=== PATIENT | female | born 1970 | race Caucasian/White ===

== ENCOUNTER 2016-07-15 12:04 | Emergency (ER) | payer SELFPAY ==
[~2016-07-15] VITALS: Ht 166.4 cm; Wt 75.0 kg
[2016-07-15 12:07] VITALS: BP 148/86; PULSE 72; RESP 16; TEMP 98.3; O2SAT 100
[2016-07-15] MEDS ORDERED: NAPR500T PO (12:27)
[2016-07-15] MEDS ORDERED: PENI250T59 PO (12:27)
--- NOTE | 2016-07-15 12:33 | PD ---
HPI Chief Complaint: Facial Pain or Swelling Time Seen by Provider: 12:27 Travel History International Travel<30 days: No Contact w/Intl Traveler<30days: No Traveled to known affect area: No History of Present Illness HPI 46-year-old female presents to the emergency department for evaluation of left upper dental pain, left-sided facial pain and left ear pain. The patient states that the symptoms have presented over the last 2 days and been worsening. She denies any fever, chills, nausea, vomiting, difficulty swallowing or eating. Pain is aggravated with palpation and eating. Denies any alleviating factors. She has not taken anything for her symptoms so far. Admits that she has a history of poor dentition. No other complaints. [facility] Past Medical History Medical History: Denies Significant Hx Tetanus Vaccination: > 5 Years Influenza Vaccination: No ?: Not LMP: 07/11/16 Past Surgical History Section: Yes (X's 2) Social History Alcohol Use: Yes ("2 beers after work") Tobacco Use: Yes (1/2 PPD) Substance Use: No Allergies-Medications (Allergen,Severity, Reaction): Coded Allergies: No Known Allergies (Unverified , 07/15/16) Reported Meds & Prescriptions Reported Meds & Active Scripts Active No Active Prescriptions or Reported Medications Review of Systems Except as stated in HPI: all other systems reviewed are Neg Physical Exam Narrative GENERAL: Well-nourished and well-developed pleasant patient in no acute distress who is nontoxic appearing. SKIN: Warm and dry. HEAD: Normocephalic and atraumatic. No facial swelling. EYES: No injection, drainage, or hyphema noted. PERRLA. EOMI. ENT: No nasal drainage noted. Oropharynx is clear and the TMs are normal with good landmarks. DENTAL: Upper left teeth #12 and 13 with dental caries at the root. Tenderness to palpation of these teeth. No erythema, swelling, abscess formation. NECK: Supple and the trachea is midline. No lymphadenopathy is noted throughout the cervical chains. CARDIOVASCULAR: Regular rate and rhythm. RESPIRATORY: Breath sounds are equal bilaterally with no accessory muscle use, wheezing, rhonchi, or crackles. NEUROLOGICAL: Awake, alert, and oriented. Normal speech and gait. Cranial nerves are grossly intact. Data Data Last Documented VS Vital Signs Date Time Temp Pulse Resp B/P Pulse Ox O2 Delivery O2 Flow Rate FiO2 07/15/16 12:07 98.3 72 16 148/86 100 MDM Medical Decision Making Medical Screen Exam Complete: Yes Emergency Medical Condition: Yes Differential Diagnosis Dental caries versus infection versus pulpitis Narrative Course 46-year-old female presents to the emergency department for evaluation of left upper dental pain with left-sided facial pain and ear pain. Patient is afebrile , vital signs are stable. The patient has 2 dental caries in the left upper mouth that are tender to palpation. I believe this is the source of her left facial and ear pain. She'll be placed on penicillin VK and naproxen. Instructed to follow-up with a dentist. Patient verbalizes understanding and agreement with treatment plan. Diagnosis Primary Impression: Pain due to dental caries Referrals: Dentist Patient Instructions: Dental Caries (ED), General Instructions Departure Forms: Tests/Procedures, Work Release Enter return to work date: Jul 16, 2016 Additional Instructions: Take medications as prescribed with food and a full glass of water. Follow-up with your Primary Care Physician. Return to the ED for any acute worsening of symptoms. Med/Other Pt SpecificInfo: Prescription(s) given Scripts Penicillin V Potassium (Penicillin Vk)250 Mg Qti259 Mg PO Q8H 10 Days Ref 0 Prov:Ann Mckeon DO 07/15/16 Naproxen 500 Mg Vtt905 Mg PO BID 7 Days Ref 0 Prov:Ann Mckeon DO 07/15/16 Disposition: 01 DISCHARGE HOME Condition: Stable Britt Doan Jul 15, 2016 12:33
== END 2016-07-15 12:35 | disposition home or self-care (01) ==
LOC: PHEFT 12:04
DX: K02.9 Dental caries, unspecified (principal); K08.89 Other specified disorders of teeth and supporting structures; H92.02 Otalgia, left ear; F17.200 Nicotine dependence, unspecified, uncomplicated
CPT/HCPCS: 99283